=== PATIENT | female | born 1990 | race Caucasian/White ===

== ENCOUNTER 2016-10-24 17:29 | Emergency (ER) | payer BC, OTHER ==
[2016-10-24 17:40] VITALS: BP 116/70; PULSE 72; TEMP 98; BMI 26.7
--- NOTE | 2016-10-24 18:14 | PDOC ---
History of Present Illness - General Chief Complaint: Headache Stated Complaint: HEADACHE Time Seen by Provider: 10/24/16 17:46 History Source: Patient Exam Limitations: Language Barrier ( at bedside to translate) - History of Present Illness Initial Comments: 10/24/16 18:09 Patient is a 26-year-old female, 2 months, presents emergency department with headache for 5 days patient states that she has a bump on her right lateral forehead and pain to right side of head since the formation of the bump. Denies any trauma to the area, there is no visible abscess however there is a palpable raised area. Patient denies any photophobia, no nausea vomiting. Has taken Motrin and Tylenol without resolve. Patient denies any chest pain or shortness of breath. Past Medical History: Denies. Allergies: No known allergies Medications: None Family History: Non-contributory Social History: Denies smoking, alcohol use, or IVDU Review of Systems GENERAL/CONSTITUTIONAL: No fever or chills. No weakness. No weight change. HEAD, EYES, EARS, NOSE AND THROAT: No change in vision. No ear pain or discharge. No sore throat. CARDIOVASCULAR: No chest pain or shortness of breath. RESPIRATORY: No cough, wheezing, or hemoptysis. GASTROINTESTINAL: No nausea, vomiting, diarrhea or constipation. No rectal bleeding. GENITOURINARY: No dysuria, frequency, or change in urination. MUSCULOSKELETAL: No joint or muscle swelling or pain. No neck or back pain. SKIN AND BREASTS: No rash or easy bruising. Palpable defined area to right lateral forehead. NEUROLOGIC: Right frontal and parietal headache, intermittent vertigo, no loss of consciousness, or loss of sensation. ENDOCRINE: No increased thirst. No abnormal weight change. HEMATOLOGIC/LYMPHATIC: No anemia, easy bleeding, or history of blood clots. ALLERGIC/IMMUNOLOGIC: No hives or skin allergy. No latex allergy. Physical Exam: GENERAL: The patient is awake, alert, and fully oriented, in no acute distress. HEAD: Normal with no signs of trauma. I will mass to right lateral forehead EYES: Pupils equal, round and reactive to light, extraocular movements intact, sclera anicteric, conjunctiva clear. ENT: Ears normal, nares patent, oropharynx clear without exudates. Moist mucous membranes. No uvula deviation NECK: Normal range of motion, supple without lymphadenopathy, JVD, or masses. LUNGS: Breath sounds equal, clear to auscultation bilaterally. No wheezes, and no crackles. HEART: Regular rate and rhythm, normal S1 and S2 without murmur, rub or gallop. ABDOMEN: Soft, nontender, normoactive bowel sounds. No guarding, no rebound. No masses. No bruising or abrasions RECTAL : Guaiac negative, normal rectal tone. MUSCULOSKELETAL: Normal range of motion, no edema. No clubbing or cyanosis. No cords, erythema, or tenderness. No CVA Tenderness with fist. NEUROLOGICAL: Cranial nerves II through XII grossly intact. Normal speech, normal gait. SKIN: Warm, Dry, normal turgor, no rashes or lesions noted. Palpable raised area , painful to touch to right lateral forehead with no surrounding erythema or evidence of cellulitis Past History - Past Medical History Allergies/Adverse Reactions: Allergies Allergy/AdvReac Type Severity Reaction Status Date / Time No Known Allergies Allergy Verified 10/24/16 17:36 Home Medications: Ambulatory Orders Cephalexin Monohydrate [Keflex -] 500 mg PO Q6H #40 capsule 10/24/16 Naproxen [Naprosyn -] 500 mg PO BID #20 tablet 10/24/16 Asthma: Yes - Reproductive History (#): 0 Para: 0 - Immunization History Immunization Up to Date: Yes - Psycho/Social/Smoking Cessation Hx Anxiety: No Suicidal Ideation: No Smoking History: Never smoked Have you smoked in the past 12 months: No Information on smoking cessation initiated: No Hx Alcohol Use: No Drug/Substance Use Hx: No Substance Use Type: None *Physical Exam - Vital Signs Last Vital Signs Temp Pulse Resp BP Pulse Ox 98.0 F 72 17 116/70 99 10/24/16 17:37 10/24/16 17:37 10/24/16 17:37 10/24/16 17:37 10/24/16 17:37 Medical Decision Making - Medical Decision Making 10/24/16 18:13 A/P: Patient with pain to right lateral forehead and headache, since patient is we will perform head CT to rule out acute intracranial pathology otherwise palpable mass to right lateral forehead may be causing this discomfort. Urine sent. 10/24/16 19:[address] scan, Toradol 60 mg IM 1 ordered I am signing this patient out to my colleague: Nurse practitioner Marco In brief, this patient is being seen in the ED for a chief complaint of: Headache, palpable mass to right lateral forehead with pain on palpation I have completed the initial assessment interview note and have ordered: Urine , CT scan of the head, Toradol I have reviewed the following results: Pending CT scan and assess pain level after Toradol Plan for disposition is as follows: Pending 10/24/16 19:58 *DC/Admit/Observation/Transfer Diagnosis at time of Disposition: Scalp mass Headache Qualifiers: Headache type: unspecified Headache chronicity pattern: acute headache Intractability: not intractable Qualified Code(s): R51 - Headache - Discharge Dispostion Disposition: HOME Condition at time of disposition: Stable - Prescriptions Prescriptions: Cephalexin Monohydrate [Keflex -] 500 mg PO Q6H #40 capsule Naproxen [Naprosyn -] 500 mg PO BID #20 tablet - Referrals Referrals: Mamadou Fleming [Non Staff, Medical] - - Patient Instructions Additional Instructions: Medications as ordered for you here today Return to emergency room if symptoms worsen or new symptoms develop Follow-up with chief sustainability officer Dr. Fleming as soon as possible Follow-up with your primary care provider as soon as possible Patient voiced understanding of discharge instructions and all questions were answered
[2016-10-24] MEDS ORDERED: KETOROLAC TROMETHAMINE 60 MG/2 ML VIAL IM ONE (19:21)
[2016-10-24] MEDS ORDERED: KETOROLAC TROMETHAMINE 60 MG/2 ML VIAL ONE (19:30)
--- NOTE | 2016-10-24 21:27 | PDOC ---
*Physical Exam - Vital Signs Last Vital Signs Temp Pulse Resp BP Pulse Ox 98.0 F 72 17 116/70 99 10/24/16 17:37 10/24/16 17:37 10/24/16 17:37 10/24/16 17:37 10/24/16 17:37 - Physical Exam Comments: 10/25/16 00:11 RECEIVED patient from HONEY CASTRO NP patient is pending results of head CT without contrast. Patient received Toradol 60 mg IM for headache patient reports that she is feeling much better. General Appearance: Yes: Appropriately Dressed Respiratory/Chest: positive: Lungs Clear, Normal Breath Sounds. negative: Chest Tender, Respiratory Distress Cardiovascular: positive: Regular Rhythm, Regular Rate, S1, S2 Integumentary: positive: Other (TENDER RAISED AREAS RT. FOREHEAD NON MOBILE ) Neurologic: positive: Fully Oriented, Alert, Normal Response ED Treatment Course - ADDITIONAL ORDERS Additional order review: Laboratory Results 10/24/16 18:15 Urine HCG, Qual Negative - Medications Given in the ED: ED Medications Discontinued Medications Generic Name Dose Route Start Last Admin Trade Name Kyle PRN Reason Stop Dose Admin Ketorolac Tromethamine 60 mg 10/24/16 19:21 10/24/16 19:44 Toradol Injection - IM 10/24/16 19:22 60 mg ONCE ONE Administration Medical Decision Making - Medical Decision Making 10/25/16 00:12 10/25/16 00:12 Patient feeling much better will discharge patient with discharge medications as ordered by NANCY CASTRO Instructions to follow up with dermatology and her primary care provider *DC/Admit/Observation/Transfer Diagnosis at time of Disposition: Scalp mass Headache Qualifiers: Headache type: unspecified Headache chronicity pattern: acute headache Intractability: not intractable Qualified Code(s): R51 - Headache - Discharge Dispostion Disposition: HOME Condition at time of disposition: Stable - Prescriptions Prescriptions: Cephalexin Monohydrate [Keflex -] 500 mg PO Q6H #40 capsule Naproxen [Naprosyn -] 500 mg PO BID #20 tablet - Referrals Referrals: Mamadou Fleming [Non Staff, Medical] - - Patient Instructions Additional Instructions: Medications as ordered for you here today Return to emergency room if symptoms worsen or new symptoms develop Follow-up with delinquency counselor Dr. Fleming as soon as possible Follow-up with your primary care provider as soon as possible Patient voiced understanding of discharge instructions and all questions were answered - Post Discharge Activity
== END 2016-10-24 21:33 | disposition home or self-care (01) ==
LOC: JERFT 17:29
PROC: 3E0233Z Introduction of Anti-inflammatory into Muscle, Percutaneous Approach (ICD-10-PCS; principal; 2016-10-24)
DX: R22.0 Localized swelling, mass and lump, head (principal); R51 Headache
CPT/HCPCS: 70450-TC; 84703; 99281-25